=== PATIENT | female | born 1990 | race Two or more races ===

== ENCOUNTER 2025-01-17 14:57 | Emergency (ER) | payer MEDICAID, SELFPAY ==
[2025-01-17 15:53] VITALS: BP 131/92; PULSE 80; RESP 18; TEMP 37; O2SAT 98
--- NOTE | 2025-01-17 18:32 | XR_ITS ---
Examination: Complete OB ultrasound, less than 14 weeks, transabdominal Date and time of exam: January 17, 2025 1908 hrs. Indications: Vaginal bleeding beginning today Technique: Obstetrical ultrasound images less than 14 weeks performed via transabdominal imaging Findings: Uterus 10.1 cm CRL 1.3 cm corresponds to 7 weeks 4 day gestational age No cardiac motion Right ovary obscured by bowel gas Left ovary 3.9 cm arterial flow 25 mm cyst Impression: Intrauterine gestation corresponding to 7 weeks 4 days gestational age However, no cardiac motion, recommend short-term follow-up transvaginal pelvic sonography to exclude demise
--- NOTE | 2025-01-17 22:14 | PD.EDRME ---
Rapid Medical Screening Exam RME Arrival date/time: 01/17/25 14:57 Chief Complaint: OB/Uterine Contractions Time Seen by Provider: 01/17/25 15:55 Vital signs: Vital Signs Temperature 98.6 F 01/17/25 15:53 Pulse Rate 80 01/17/25 15:53 Respiratory Rate 18 01/17/25 15:53 Blood Pressure 131/92 H 01/17/25 15:53 Pulse Oximetry (%) 98 01/17/25 15:53 Oxygen Delivery Method Room Air 01/17/25 15:53 Vital signs reviewed by provider: Yes RME Narrative: 34 YO female presents to the ED with a complaint of spotting and cramping. She states she is 11 weeks and is had an ultrasound in her OB office which showed an intrauterine . The spotting is described as light pink fluid with wiping after urination. She has had no spotting in her underwear. Denies any fever or chills, nausea or vomiting, urinary frequency or burning with urination.
[2025-01-17 22:21] LABS: Collection Type, Urine Clean Catch
[2025-01-17 22:28] LABS: Bilirubin,Urine Negative (Negative); Blood,Urine Negative (Negative); Clarity,Urine Clear (Clear/Hazy); Color,Urine Yellow (Lt Yel-Yel); Glucose, Urine Negative (Negative); Ketones,Urine Negative (Negative); Leukocyte Esterase,Urine Negative (Negative); Nitrite,Urine Negative (Negative); Protein,Urine Negative (Neg - Trace); RBC,Urine 4 /hpf (0-3); Specific Gravity,Urine 1.024 (1.001-1.035); Squamous Epithelial Cell,Urine 5 /hpf (0-5); Urobilinogen,Urine Negative mg/dL (0.0-1.0); WBC,Urine < 1 /hpf (0-5)
--- NOTE | 2025-03-29 13:17 | PD.EDADULT ---
ED General RME/HPI General Chief complaint: OB/Uterine Contractions Stated complaint: PREG 11 WKS; SPOTTING & CRAMPING, STARTED TODAY Time Seen by Provider: 01/17/25 15:55 Arrival date/time: 01/17/25 14:57 RME / HPI RME / HPI narrative: 34 YO female presents to the ED with a complaint of spotting and cramping. She states she is 11 weeks and is had an ultrasound in her OB office which showed an intrauterine . The spotting is described as light pink fluid with wiping after urination. She has had no spotting in her underwear. Denies any fever or chills, nausea or vomiting, urinary frequency or burning with urination. Related Data Home Medications ?Medication ?Instructions ?Recorded ?Confirmed amlodipine 5 mg tablet 5 mg PO QDAY 03/07/23 03/07/23 ergocalciferol (vitamin D2) 1,250 1,250 mcg PO QWEEK 03/07/23 03/07/23 mcg (50,000 unit) capsule (Vitamin D2) lisinopril 40 mg tablet 40 mg PO QDAY 03/07/23 03/07/23 metoprolol tartrate 25 mg tablet 25 mg PO BID 03/07/23 03/07/23 semaglutide 1 mg/dose (4 mg/3 mL) 1 mg subcut QWEEK 03/07/23 03/07/23 subcutaneous pen injector (Ozempic) Previous Rx's ?Medication ?Instructions ?Recorded hydrocodone 10 mg-acetaminophen 1 tab PO Q6H PRN pain #28 tabs 03/10/23 325 mg tablet lidocaine 5 % topical ointment 1 applicatio topical TID PRN 03/10/23 Hemorrhoid surgery 30 days #50 grams ibuprofen 800 mg tablet 800 mg PO TID PRN pain #30 tabs 10/29/23 Allergies Allergy/AdvReac Type Severity Reaction Status Date / Time No Known Allergies Allergy Verified 01/17/25 14:59 Review of Systems Review of Systems Systems Reviewed: All systems reviewed, normal except as documented Past Medical History Past Medical History NEUROLOGIC: Negative Neurological Disorders or Seizures CARDIAC: Positive Cardiac Disorders, Hypercholesterolemia and Hypertension; Negative Congestive Heart Failure, Edema, Cellulitis or Varicose Veins RESPIRATORY: Negative Chronic Obstructive Pulmonary Disease (COPD), Pulmonary Embolism or Sleep Apnea GASTROINTESTINAL: Negative Gastrointestinal Disorders or Hepatitis GENITOURINARY: Negative Genitourinary Disorders or Renal Disease REPRODUCTIVE: Negative Previous Pregnancies MUSCULOSKELETAL: Positive Musculoskeletal Disorders ENDOCRINE: Negative Endocrine Disorders, Diabetes Mellitus Type 1 or Diabetes Mellitus Type 2 HEMATOLOGIC: Negative Blood Disorders OTHER HISTORY: Negative Hospitalization, Autoimmune Disease, Shingles, Falls, Blood Transfusions, Blood Transfusion Reaction, Anesthesia Reactions, Chemotherapy, Radiation Therapy, MRSA, Chicken Pox, Measles, Mumps or Cancer Family History FAMILY HISTORY: Positive Family Cardiac Disorders and Family Surgery; Negative Family Psychiatric Problems, Family Respiratory Disorders, Family Gastrointestinal Problems, Family Cancer or Family Anesthesia Reaction Surgical History SURGICAL: Negative Pacemaker Social History SMOKING STATUS: Never smoker ED Exam Narrative Physical exam: Alert and oriented 34-year-old female, no acute distress. Lungs are clear, regular rate and rhythm. Course Orders Category Date Time Status US OB <= 14 weeks fetus Stat Exams 01/17/25 18:32 Completed Beta HCG,Quantitative Stat Lab 01/17/25 18:49 Completed Urinalysis Stat Lab 01/17/25 22:16 Completed Urine Culture Stat Lab 01/17/25 22:16 Completed Vital Signs Vital signs: Vital Signs Temperature 98.6 F 01/17/25 15:53 Pulse Rate 80 01/17/25 15:53 Respiratory Rate 18 01/17/25 15:53 Blood Pressure 131/92 H 01/17/25 15:53 Pulse Oximetry (%) 98 01/17/25 15:53 Oxygen Delivery Method Room Air 01/17/25 15:53 Discharge Plan Plan Patient Disposition: HOME (Self Care) Prescriptions/Referrals Prescriptions/Med Rec: No Action amlodipine 5 mg Tablet 5 mg PO QDAY ergocalciferol (vitamin D2) [Vitamin D2] 1,250 mcg (50,000 unit) Capsule 1,250 mcg PO QWEEK lisinopril 40 mg Tablet 40 mg PO QDAY metoprolol tartrate 25 mg Tablet 25 mg PO BID Ozempic 1 mg/dose (4 mg/3 mL) pen injector 1 mg SUBCUT QWEEK Patient Comments: INJECT 1 MG SUBCUTANEOUSLY ONCE A WEEK hydrocodone-acetaminophen 10-325 mg tablet 1 tab PO Q6H MDD 4 PRN (Reason: pain) Qty: 28 0RF lidocaine 5 % ointment 1 applicatio TOPICAL TID PRN (Reason: Hemorrhoid surgery) 30 Days Qty: 50 3RF ibuprofen 800 mg tablet 800 mg PO TID PRN (Reason: pain) Qty: 30 0RF Referrals: Mekhi Galarza MD [Primary Care Provider] - In 1 week Problem List Clinical Impression: Threatened miscarriage in early Patient/Caregiver Discharge Instructions Other Activity Instructions:: Follow-up with your OB on Friday for a repeat beta-hCG and transvaginal ultrasound, as discussed. Education Materials: ED Possible Miscarriage ... Additional Instructions: Follow-up with your primary care physician in 24 to 48 hours. Return to the ED for any new or worsening symptoms. Print Language: Togolese Stand Alone Forms: [employer] Award Info., Patient Portal Info Letter PA/VMWARE ENGINEER Supervising Physician PA/VMWARE ENGINEER Supervising Physician: Dr. Maguire [facility] Imaging Radiology reports / interpretation(s): OB US <14wks: Impression: Intrauterine gestation corresponding to 7 weeks 4 days gestational age However, no cardiac motion, recommend short-term follow-up transvaginal pelvic sonography to exclude demise
== END 2025-01-17 22:45 | disposition home or self-care (01) ==
PROVIDERS: Physician Assistant; Emergency Provider Family Medicine; PCP Obstetrics & Gynecology
DX: O20.0 Threatened abortion (principal); Z3A.01 Less than 8 weeks gestation of pregnancy
CPT/HCPCS: 36415; 76801; 81001; 84702; 87086; 99284

== ENCOUNTER 2025-01-28 22:42 | Emergency (ER) | payer MEDICAID, SELFPAY ==
[2025-01-28 22:48] VITALS: BP 111/77; PULSE 90; RESP 15; TEMP 36.6; O2SAT 95; BMI 30.1
[2025-01-28 23:51] VITALS: BP 101/68; PULSE 89; RESP 16; TEMP 36.8; O2SAT 98
[2025-01-29 00:41] VITALS: BP 120/92; PULSE 84; RESP 14; TEMP 37.2; O2SAT 100
[2025-01-29] MEDS: SODIUM CHLORIDE 0.9% 1000 ML 1,000 ML 999 ML IV (00:50)
[2025-01-29] MEDS: MORPHINE SULF INJ 10 MG/ML VIAL 5 MG IVP (00:51)
[2025-01-29 01:12] LABS: Basophils # (Auto) 0.1 Thou/mm3 (0.0-0.2); Basophils % (Auto) 0 % (0-2.5); Eosinophils % (Auto) 0 % (0-10); Hematocrit 32.8 % (36.0-46.0); Hemoglobin 11.7 g/dL (12.0-16.0); Immature Granulocytes % (Auto) 1 % (0-0); Immature Granulocytes Auto 0.09 Thou/mm3 (0.00-0.00); Lymphocytes # (Auto) 1.3 Thou/mm3 (1.0-4.8); Lymphocytes % (Auto) 8 % (10-50); Mean Corpuscular HGB Conc 35.7 g/dl (31.0-37.0); Mean Corpuscular Hemoglobin 31.9 pg (25.0-35.0); Mean Corpuscular Volume 89 fL (80-100); Monocytes # (Auto) 0.7 Thou/mm3 (0.0-0.8); Monocytes % (Auto) 4 % (0-12); Neutrophils # (Auto) 14.4 Thou/mm3 (1.8-7.7); Neutrophils % (Auto) 87 % (37-80); Nucleated Red Blood Cell % 0 /100 WBC (0); Platelet Count 253 Thou/mm3 (140-440); RDW Standard Deviation 40.6 fL (36.4-46.3); Red Blood Count 3.67 Miln/mm3 (4.00-5.20); White Blood Count 16.5 Thou/mm3 (3.6-11.0)
[2025-01-29 01:31] LABS: Alanine Aminotransferase 12 U/L (10-49); Albumin/Globulin Ratio 1.7 (1.2-2.2); Alkaline Phosphatase 63 U/L (46-116); Anion Gap 8 (7-16); Aspartate Amino Transferase 19 U/L (0-34); BUN/Creatinine Ratio 30 Ratio (12-20); Bilirubin,Total 0.3 mg/dL (0.3-1.2); Blood Urea Nitrogen 18 mg/dL (9-23); Calcium 8.6 mg/dL (8.3-10.6); Calcium (Corrected) 8.6 mg/dL (8.5-10.1); Carbon Dioxide 25.7 mMol/L (20.0-31.0); Chloride 104 mMol/L (98-107); Creatinine (Component) 0.6 mg/dL (0.6-1.3); Estimated Creatinine Clearance 127.5 mL/min (>60); Globulin 2.4 gm/dL (2.3-3.5); Glucose 129 mg/dL (74-106); Osmolality,Calculated 279 (275-295); Potassium 4.5 mMol/L (3.4-5.1); Sodium 138 mMol/L (136-145); Total Protein 6.4 gm/dL (5.7-8.2); eGFR > 60 See Note
[2025-01-29 02:14] VITALS: BP 110/92; PULSE 89; RESP 16; TEMP 37.2; O2SAT 100
--- NOTE | 2025-01-29 05:18 | EDNOTE_ITS ---
<Statement entered by Dannielle Lewis MD - 01/30/25 04:33> As co-signing physician, I was present and available for consult prn. I concur with the plan and care as documented by the midlevel provider. ED OB Contraction Preg RMI/HPI General Chief complaint: Vaginal Bleeding Stated complaint: VAG BLEEDING, WEAKNESS, SYNCOPAL EPISODE Time Seen by Provider: 01/29/25 00:28 Arrival date/time: 01/28/25 22:42 34F with no significant PMH presents to ED with active miscarriage as patient pa ssed POC. Patient had US 2 days ago which showed IUP but no FHR. Paitent also had syncopal episode from pain but caught her before she fell. Limitations: no limitations Related Data Home Medications ?Medication ?Instructions ?Recorded ?Confirmed amlodipine 5 mg tablet 5 mg PO QDAY 03/07/23 ergocalciferol (vitamin D2) 1,250 1,250 mcg PO QWEEK 0 03/07/23 03/07/23 mcg (50,000 unit) capsule (Vitamin D2) lisinopril 40 mg tablet 40 mg PO QDAY 03/07/2303/07 metoprolol tartrate 25 mg tablet 25 mg PO BID 03/07/23 03/07/23 semaglutide 1 mg/dose (4 mg/3 mL) 1 mg subcut QWEEK 03/07/23 subcutaneous pen injector (Ozempic) Previous Rx's ?Medication ?Instructions ?Recorded hydrocodone 10 mg-acetaminophen 1 tab PO Q6H PRN pain #28 tabs 03/10/23 325 mg tablet lidocaine 5 % topical ointment 1 applicatio topical TI D PRN 03/10/23 Hemorrhoid surgery 30 days #50 grams ibuprofen 800 mg tablet 800 mg PO TID PRN pain #30 t abs 10/29/23 Allergies Allergy/AdvReac Type Severity Reaction Status Date / Time No Known Allergies Allergy Verified 01/17/25 14:59 Review of Systems Review of Systems Systems Reviewed: All systems reviewed, normal except as documented Constitutional Constitutional: Reports system reviewed and no additional complaints, except as documented, Denies fever(s) and Denies headache(s) ENT Ears, Nose, Mouth, and Throat: Denies disequilibrium and Denies headache(s) Cardiovascular Cardiovascular: Reports system reviewed and no additional complaints, except as documented, Denies chest pain, Denies dyspnea and Reports syncope Respiratory Respiratory: Reports system reviewed and no additional complaints, except as documented, Denies cough and Denies dyspnea Gastrointestinal Gastrointestinal: Reports system reviewed and no additional complaints, except as documented, Denies abdominal pain, Denies nausea and Denies vomiting Genitourinary Genitourinary: Reports abnormal vaginal bleeding and Reports pelvic pain Neurologic Neurologic: Reports system reviewed and no additional complaints, except as documented, Denies confusion, Denies disequilibrium, Denies headache(s) and Reports syncope Psychiatric Psychiatric: Denies confusion Past Medical History Past Medical History NEUROLOGIC: Negative Neurological Disorders or Seizures CARDIAC: Positive Cardiac Disorders, Hypercholesterolemia and Hypertension; Negative Congestive Heart Failure, Edema, Cellulitis or Varicose Veins RESPIRATORY: Negative Chronic Obstructive Pulmonary Disease (COPD), Pulmonary Embolism or Sleep Apnea GASTROINTESTINAL: Negative Gastrointestinal Disorders or Hepatitis GENITOURINARY: Negative Genitourinary Disorders or Renal Disease REPRODUCTIVE: Negative Previous Pregnancies MUSCULOSKELETAL: Positive Musculoskeletal Disorders ENDOCRINE: Negative Endocrine Disorders, Diabetes Mellitus Type 1 or Diabetes Mellitus Type 2 HEMATOLOGIC: Negative Blood Disorders OTHER HISTORY: Negative Hospitalization, Autoimmune Disease, Shingles, Falls, Blood Transfusions, Blood Transfusion Reaction, Anesthesia Reactions, Chemotherapy, Radiation Therapy, MRSA, Chicken Pox, Measles, Mumps or Cancer Family History FAMILY HISTORY: Positive Family Cardiac Disorders and Family Surgery; Negative Family Psychiatric Problems, Family Respiratory Disorders, Family Gastrointestinal Problems, Family Cancer or Family Anesthesia Reaction Surgical History SURGICAL: Negative Pacemaker Social History SMOKING STATUS: Never smoker ED Exam General Limitations: Present no limitations General appearance: Present alert and in no apparent distress Head Head exam: Present atraumatic Eye Eye exam: Present normal appearance, PERRL and EOMI ENT ENT exam: Present normal exam, normal oropharynx and mucous membranes moist Neck Neck exam: Present normal inspection, full ROM and trachea midline Chest Chest inspection: Present normal inspection and symmetric chest wall rise Respiratory Respiratory exam: Present normal lung sounds bilaterally Cardiovascular Cardiovascular exam: Present regular rate, normal rhythm and normal heart sounds Abdominal Exam Abdominal exam: Present soft and normal bowel sounds Extremities Exam Extremities exam: Present normal inspection and full ROM Back Exam Back exam: Present normal inspection and full ROM Neurological Exam Neurological exam: Present alert, oriented X3 and CN II-XII intact Psychiatric Psychiatric exam: Present normal affect and normal mood Skin Skin exam: Present warm, dry, intact and normal color Course Quality Measures none Orders Category Date Time Status Insert IV NOW Care 01/29/25 00:28 Completed CBC Stat Lab 01/29/25 00:44 Completed CMP [Comprehensive Metabolic Panel] Stat Lab 01/29/25 00:44 Completed Type and Screen Stat Lab 01/29/25 00:44 Completed Morphine Inj Med 01/29/25 00:28 Discontinued 5 mg IVP X1 ONE Sodium Chloride 0.9% 1000 ml [Ns] 1,000 ml Med 01/29/25 00:28 Discontinued IV 999 mls/hr Vital Signs Vital signs: Vital Signs Temperature 97.9 F 01/28/25 22:48 Pulse Rate 90 01/28/25 22:48 Respiratory Rate 15 01/28/25 22:48 Blood Pressure 111/77 01/28/25 22:48 Pulse Oximetry (%) 95 01/28/25 22:48 Oxygen Delivery Method Room Air 01/28/25 22:48 O2 at 95% on RA and WNLs Vaginal Bleeding MDM Narrative MDM Narrative: 34F with no significant PMH presents to ED with active miscarriage as patient passed POC. Patient had US 2 days ago which showed IUP but no FHR. Paitent also had syncopal episode from pain but caught her before she fell. Physical exam reveals somewhat pale-looking female. Patient is afebrile, calm, and alert. Moderate leukocytosis and minimal anemia. CMP unremarkable. O+. Meds improved symptoms. Walk challenge passed. Machine Cloth Examiner given. Patient data External records reviewed:: [facility] previous records Clinical information provided by:: patient Social determinants that could affect healthcare access:: none Patient has the following chronic illnesses:: none How is presenting disease/condition affected by chronic disease/condition?: no chronic disease Evaluation data The following diagnostics were reviewed and interpreted by me:: lab results Lab and/or radiology exams considered but not ordered:: ordered Interpretation Summary: above Medications / Prescriptions Medications or Prescriptions considered but not ordered:: ordered Medication administrations:: Medication Administration History Discontinued Medications Sodium Chloride (Ns) 1,000 mls @ 999 mls/hr IV .Q1H1M ONE Stop: 01/29/25 01:28 Last Infusion: 01/29/25 02:00 Dose: Infused Documented By: Admin: 01/29/25 00:50 Dose: 999 mls/hr Documented By: YARITZA Morphine Sulfate (Morphine Sulf Inj 10 Mg/Ml Vial) 5 mg IVP X1 ONE Stop: 01/29/25 00:29 Last Admin: 01/29/25 00:51 Dose: 5 mg Documented By: EE above Consultations Consultation(s) initiated? (list below): No Diagnosis Vaginal Bleeding Differential Diagnosis: missed , threatened , dysfunctional uterine bleeding, menometrorrhagia, incomplete , ectopic without intrauterine and vaginal bleeding Most likely diagnosis given after review of the tests above:: incomplete miscarriage Admission Indicated Admission indicated?: not indicated Admission Request Was there a request for admission?: No Disposition Plan Disposition Plan: Discharge Discharge Attestation Discharge Attestation: The patient and all family members were given an opportunity to ask questions and understood the discharge instructions. Discharge instructions specifically effects, indications for sooner follow up or return to the emergency department, and the expected course of current diagnosis. Patient condition: Stable Discharge Plan Plan Patient Disposition: HOME (Self Care) Discharge Disposition comment: Stable Prescriptions/Referrals Prescriptions/Med Rec: No Action amlodipine 5 mg Tablet 5 mg PO QDAY ergocalciferol (vitamin D2) [Vitamin D2] 1,250 mcg (50,000 unit) Capsule 1,250 mcg PO QWEEK lisinopril 40 mg Tablet 40 mg PO QDAY metoprolol tartrate 25 mg Tablet 25 mg PO BID Ozempic 1 mg/dose (4 mg/3 mL) pen injector 1 mg SUBCUT QWEEK Patient Comments: INJECT 1 MG SUBCUTANEOUSLY ONCE A WEEK hydrocodone-acetaminophen 10-325 mg tablet 1 tab PO Q6H MDD 4 PRN (Reason: pain) Qty: 28 0RF lidocaine 5 % ointment 1 applicatio TOPICAL TID PRN (Reason: Hemorrhoid surgery) 30 Days Qty: 50 3RF ibuprofen 800 mg tablet 800 mg PO TID PRN (Reason: pain) Qty: 30 0RF Problem List Clinical Impression: Incomplete miscarriage Patient/Caregiver Discharge Instructions Education Materials: ED Miscarriage, Incomplete Additional Instructions: Please follow-up with PCP/OBYGN within 24-48 hours and return immediately if symptoms worsen. Print Language: Amharic Stand Alone Forms: Patient Portal Info Letter PA/REMOTE SENSING TECHNICIAN Supervising Physician DWIGHT/COLETTE Supervising Physician: Dr. Lewis
== END 2025-01-29 02:15 | disposition home or self-care (01) ==
PROVIDERS: Physician Assistant; Emergency Provider Emergency Medicine
DX: O03.4 Incomplete spontaneous abortion without complication (principal)
CPT/HCPCS: 36415; 80053; 85025; 86850; 86900; 86901; 96361; 96374; 99284; J2270; J7030

== ENCOUNTER 2025-03-31 09:41 | Outpatient (AMB) | payer MEDICAID, SELFPAY ==
--- NOTE | 2025-03-31 09:41 | AMB.OBINITIA ---
Vital Signs 03/31/25 09:54 Height 1.6 m Height Method Stated Weight 79.549 kg Weight Measurement Method Standing Scale BMI 31.0 BP 118/80 Blood Pressure Source Automatic Cuff Blood Pressure Location Right Upper Arm Position Sitting Respiration 17 Pulse 87 Pulse Source Monitor Temp 97.7 F Temp Source Temporal Artery Scan Pulse Oximetry (%) 98 Oxygen Delivery Method Room Air Allergies/Home Meds Allergies & Medications Allergies No Known Allergies Allergy (Verified 03/31/25 09:56) Intake Visit Data Collection New Patient or Established: Established Patient (seen at [facility] within 3 years) Reason for Visit:: OBI Digester Capper Required: No Do You Feel Safe at Home: Yes Authorities Contacted: N/A PCP or OBGYN visit in last 3 months: Yes Date of Last PCP or OBGYN visit: 01/29/25 Hx Now: Yes Are you currently on any form of Control: No Last menstrual period: 01/28/25 Pain Present Currently: No Pain Scale Used: Vang-Schafer/Numerical Pain scale:: 0 Smoking Status Smoking Status: Never smoker Questionnaires Covid-19 Vaccine Questionnaire Has patient been vacinated for Covid-19 Have you been vacinated for Covid-19: Yes PHQ-9 PHQ-2 Over the last 2 weeks, how often have you been bothered by any of the following problems? 1. Little interest or pleasure in doing things: not at all 2. Feeling down, depressed, or hopeless: not at all Total score: 0 PHQ-9 3. Trouble falling or staying asleep, or sleeping too much: Not at all 4. Feeling tired or having little energy: Not at all 5. Poor appetite or overeating: Not at all 6. Feeling bad about yourself - or that you are a failure or have let yourself or your family down: Not at all 7. Trouble concentrating on things, such as reading the newspaper or watching television: Not at all 8. Moving or speaking so slowly that other people could have noticed? - Or the opposite - being so fidgety or restless that you have been moving around a lot more than usual: not at all 9. Thoughts that you would be better off or of hurting yourself in some way: Not at all Total score: 0 If you checked off any problems, how difficult have these problems made it for you to do your work, take care of things at home, or get along with other people?: not difficult at all Source: Developed by Drs. Bro Martins, Zenobia Parsons, Jose Ludwig and colleagues, with an educational stacia from [employer]. Depression screen completed yes Social History Living Situation History Marital Status: Lives With: Spouse Housing: House Housing Other:: The patient speaks Chilean. Her spouse speaks Tajik. She stays at home. Tobacco History Smoking Status: Never smoker Second Hand Smoke Exposure: No Alcohol History Alcohol Intake: Never Domestic Abuse History Do You Feel Safe at Home: Yes History of Present Illness HPI Narrative The patient is a 34-year-old -0-1-0 unsure LMP who presents for a new OB. She thinks her last menstrual period was sometime at the beginning of January. She had a positive test February 25. She is anxious because she had a miscarriage right before she got with this baby. She was about 7-1/2 weeks along. She did not need a D&C. She has lab work from a clinic in [place]. I have the results. She denies any cramping or bleeding today. She is just anxious she might miscarry again. She is present with her who only speaks Tajik. The patient herself speaks Chilean. She states she was having a hard time getting until about a year ago when she had a gastric sleeve. She then dropped 70 pounds. She states she got and had an ultrasound in December showed a 7-week 4 ounce intrauterine and she miscarried about a week later. She has had her gallbladder removed at the same time as her sleeve because she already had gallstones. She has had a right ovarian cystectomy. She has chronic hypertensive she is on Procardia 30 p.o. daily she was switched from lisinopril with the . She is already taking a baby aspirin. OB Ultrasound Indication Indication: Size and dates OB Ultrasound Ultrasound technique: transvaginal Gestational sac assessment: Presence, location, size, shape: Live intrauterine with a crown-rump length of 0.72 cm corresponding to 6 weeks 4 days and an EDC of 11/20/2025 cardiac activity is noted At was taking 700 a month or how much a week? The mean is 20 charging less than $100 plus his because he is going to have to pay for water. 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 She has been changed to Procardia XL 30 mg p.o. daily The patient lost 70 pounds due to her gastric sleeve. She denies any other chronic medical problems including asthma or diabetes. OB Initial Visit Menstrual History Menstrual reliability: definite Flow: normal Menstrual regularity: regular Monthly: Yes Age at menarche: 11 On control pills at conception: No Date of positive home test: 02/25/25 OB History : 2 Para: 0 Hx # Pregnancies: 0 Hx Total # of Abortions (Spontaneous & Elective): 1 # of Living Children: 0 Infection History & Risk Evaluation History of STDs: none HIV risk evaluation: low risk Hepatitis B risk evaluation: low risk Patient or partner has history of Genital Herpes: No Varicella/chicken pox status: unknown Genetic Screening & History Genetic Screening/Teratology Counseling - Includes patient, baby's father, or anyone in either family with: 1. Patient's age 35 years or older as of estimated date of delivery: Yes 2. Thalassemia (Burundian, Upper Sorbian, Mediterranean, or Background); MCV less than 80: No 3. Neural Tube Defect (Meningomyelocele, Spina Bifida, or Anencephaly): No 4. Congenital Heart Defect: No 5. Down Syndrome: No 6. Yon-Sachs (Ashkenazi Mandaen, Cajun, Japanese [place]): No 7. Dalila Disease (Ashkenazi Mandaen): No 8. Familial Dysautonomia (Ashkenazi Mandaen): No 9. Sickle Cell Disease or Trait (): No 10. Hemophilia or other blood disorders: No 11. Muscular Dystrophy: No 12. Cystic Fibrosis: No 13. Taft's Chorea: No 14. Mental Retardation/Autism: No 15. Other inherited genetic or chromosomal disorder: No 16. Maternal Metabolic Disorder (EG,TYPE 1 Diabetes, PKU): No 17. Patient or baby's father had a child with defects not listed above: No 18. Recurrent loss or a stillbirth: No 19. Medications (including supplements, vitamins, herbs or otc drugs)/illicit/recreational drugs/alcohol since last menstrual period: No 20. Any other: No Infection History 1. Live with someone with TB or exposed to TB: No 2. Rash or viral illness since last menstrual period: No 3. Hepatitis B,C: No Other (see comments) Source: [employer] Exam General Limitations: no limitations General Appearance: alert, in no apparent distress, comfortable, cooperative, healthy appearing and well groomed Neck Neck exam: Present normal inspection, full ROM and trachea midline Chest Chest inspection: Present normal inspection and symmetric chest wall rise Resp Respiratory exam: Present normal lung sounds bilaterally Card Cardiovascular exam: Present regular rate, normal rhythm and normal heart sounds Abdominal Abdominal exam: Present soft, normal bowel sounds and scar (Small scar right lower quadrant from right ovarian cystectomy, small scars gastric sleeve and lap garrett) Extremities Extremities exam: Present normal inspection and full ROM Psych Psychiatric exam: Present normal affect and normal mood Skin Skin exam: Present warm, dry, intact and normal color Results Objective Laboratory: Labs from [facility] reviewed from March 18, 2025 O positive/antibody screen negative /rubella immune/ RPR nonreactive/HIV negative/GC negative/ Chlamydia negative/TSH within normal limits Hemoglobin 13.8. Drug screen negative. All labs reviewed with the patient and her . Cystic fibrosis screening is pending. Pap with GC chlamydia and HPV done on the Pap were normal from March 18, 2025. Office Procedures OB Clinic LOC & Office Proc's Nursing/Assessment Patient Status: Established Patient OB Clinic Nursing Assessment: Medication Reconciliation, Update PMH in EMR and Vital Signs OB Clinic Coordination of Care: Complex Care and Chronic Disease 1-5, Consent,records obtained, informed consent, Education Simp Pt/Fam and Staff clarify orders Special Needs: Heart tones Established Patient Charge Established Patient Point Assignment: 115 Established Patient Point Charge: EP Level 3 (80-115) Assessment & Plan Diagnosis / Problem List (1) : Status: Acute Qualifiers: Weeks of gestation: less than 8 weeks Qualified Code(s): Z3A.01 - Less than 8 weeks gestation of Assessment and Plan: Patient is anxious because of a history of a loss. Will recheck an official ultrasound in 2 weeks. Follow-up in 4 weeks. (2) AMA (advanced maternal age) primigravida 35+: Status: Acute Qualifiers: Trimester: first trimester Qualified Code(s): O09.511 - Supervision of elderly primigravida, first trimester Assessment and Plan: Patient desires NIPT. Will refer to [facility] for level 2 ultrasound. (3) H/O gastric sleeve: Status: Acute Assessment and Plan: Patient to take vitamins and iron. Instructed on healthy eating. (4) Chronic hypertension during , antepartum: Status: Acute Assessment and Plan: On Procardia 30 mg p.o. daily. Refer to maternal- medicine. On baby aspirin 81 mg p.o. daily Additional Plan Follow Up: 4 Weeks
[2025-03-31 09:54] VITALS: BP 118/80; PULSE 87; RESP 17; TEMP 36.5; O2SAT 98; BMI 31.0
== END 2025-03-31 12:13 | disposition home or self-care (01) ==
LOC: HODSOBC 09:41
PROVIDERS: Supervising Provider Obstetrics & Gynecology; Visit Provider Obstetrics & Gynecology
DX: O09.521 Supervision of elderly multigravida, first trimester (principal); O09.891 Supervision of other high risk pregnancies, first trimester; O10.911 Unspecified pre-existing hypertension complicating pregnancy, first trimester; O99.841 Bariatric surgery status complicating pregnancy, first trimester; Z3A.01 Less than 8 weeks gestation of pregnancy; Z79.82 Long term (current) use of aspirin; Z79.899 Other long term (current) drug therapy
CPT/HCPCS: 99213; G0463

== ENCOUNTER 2025-04-03 07:13 | Emergency (ER) | payer MEDICAID, SELFPAY ==
[2025-04-03 07:14] VITALS: BMI 30.9
[2025-04-03 07:22] VITALS: BP 127/90; PULSE 95; RESP 18; TEMP 36.7; O2SAT 98; BMI 30.9
--- NOTE | 2025-04-03 07:39 | PD.EDRME ---
Rapid Medical Screening Exam RME Arrival date/time: 04/03/25 07:13 This is a 34-year-old female that comes in with complaints of nausea vomiting and diarrhea that started yesterday. Patient states she is approximately 7 weeks . Patient is a 2 para 0 patient states she had a miscarriage earlier this year. Patient had some vaginal spotting but does not states she has any at this time. I have greeted and performed a focused initial assessment of this patient. Initial appropriate labs ordered at this time. A comprehensive ED assessment and evaluation of the patient and analysis of all test and completion of medical decision making process will be conducted by additional ED provider. Chief Complaint: Nausea/Vomiting/Diarrhea Time Seen by Provider: 04/03/25 07:22 Vital signs: Vital Signs Temperature 98.1 F 04/03/25 07:22 Pulse Rate 95 04/03/25 07:22 Respiratory Rate 18 04/03/25 07:22 Blood Pressure 127/90 H 04/03/25 07:22 Pulse Oximetry (%) 98 04/03/25 07:22 Oxygen Delivery Method Room Air 04/03/25 07:22
--- NOTE | 2025-04-03 07:41 | XR_ITS ---
Examination: Complete OB ultrasound, less than 14 weeks, transabdominal Date and time of exam: April 03, 2025, 0755 hrs. Indications: Vaginal bleeding and pelvic cramping today. Technique: Obstetrical ultrasound images less than 14 weeks performed via transabdominal imaging Findings: A normal shaped single intrauterine gestation is present in the uterus. pole 0.8 cm corresponds to 6 weeks 5 day gestational age. Cardiac motion 141 BPM Ultrasonographic survey of visible and placental structures unremarkable. Amniotic fluid volume appears appropriate for this estimated gestational age. Right ovary 3.4 cm arterial flow. Left ovary obscured by bowel gas. Impression: Viable intrauterine gestation 6 weeks 5 days.
[2025-04-03] MEDS: ONDANSETRON ODT 4 MG TABRAP PO (08:11)
[2025-04-03 08:51] LABS: Basophils # (Auto) 0.1 Thou/mm3 (0.0-0.2); Basophils % (Auto) 0 % (0-2.5); Eosinophils # (Auto) 0.1 Thou/mm3 (0.0-0.5); Eosinophils % (Auto) 1 % (0-10); Hematocrit 41.6 % (36.0-46.0); Hemoglobin 14.8 g/dL (12.0-16.0); Immature Granulocytes Auto 0.08 Thou/mm3 (0.00-0.00); Lymphocytes # (Auto) 0.5 Thou/mm3 (1.0-4.8); Lymphocytes % (Auto) 4 % (10-50); Mean Corpuscular HGB Conc 35.6 g/dl (31.0-37.0); Mean Corpuscular Hemoglobin 31.6 pg (25.0-35.0); Mean Corpuscular Volume 89 fL (80-100); Monocytes # (Auto) 0.7 Thou/mm3 (0.0-0.8); Monocytes % (Auto) 5 % (0-12); Neutrophils # (Auto) 12.9 Thou/mm3 (1.8-7.7); Neutrophils % (Auto) 90 % (37-80); Nucleated Red Blood Cell # 0.00 Thou/mm3 (0.00-0.00); Nucleated Red Blood Cell % 0 /100 WBC (0); Platelet Count 272 Thou/mm3 (140-440); RDW Standard Deviation 40.8 fL (36.4-46.3); Red Blood Count 4.69 Miln/mm3 (4.00-5.20); White Blood Count 14.3 Thou/mm3 (3.6-11.0)
--- NOTE | 2025-04-03 09:12 | EDNOTE_ITS ---
Nausea/Vomit./Diarrhea-RME/HPI General Chief complaint: Nausea/Vomiting/Diarrhea Stated complaint: DIARRHEA AND VOMITING Time Seen by Provider: 04/03/25 07:22 Arrival date/time: 04/03/25 07:13 Limitations: no limitations RME / HPI RME / HPI Narrative: 04/03/25 07:13 This is a 34-year-old female that comes in with complaints of nausea vomiting and diarrhea that started yesterday. Patient states she is approximately 7 weeks . Patient is a 2 para 0 patient states she had a miscarriage earlier this year. Patient had some vaginal spotting but does not states she has any at this time. I have greeted and performed a focused initial assessment of this patient. Initial appropriate labs ordered at this time. A comprehensive ED assessment and evaluation of the patient and analysis of all test and completion of medical decision making process will be conducted by additional ED provider. DR. QUIROGA MAIN ED EVALUATION: 34 year old female who is ~ 7 weeks gestational age A1 presents to the ED for evaluation of diarrhea beginning last night. Accompanied by vaginal spotting and dysuria. Denies any recent travel or use of antibiotics. No sick contacts with similar symptoms. Denies fevers, chills, chest pain, cough. No reported modifying factors. Related Data Allergies Allergy/AdvReac Type Severity Reaction Status Date / Time No Known Allergies Allergy Verified 04/03/25 07:16 Review of Systems Review of Systems Systems Reviewed: All systems reviewed, normal except as documented Past Medical History Past Medical History CARDIAC: Positive Cardiac Disorders, Hypercholesterolemia and Hypertension MUSCULOSKELETAL: Positive Musculoskeletal Disorders Family History FAMILY HISTORY: Positive Family Cardiac Disorders and Family Surgery Surgical History SURGICAL: Negative Pacemaker Social History SMOKING STATUS: Never smoker SECOND HAND EXPOSURE: No ED Exam General Limitations: Present no limitations General appearance: Present alert and in no apparent distress Head Head exam: Present atraumatic and normocephalic Eye Eye exam: Present normal appearance, PERRL and EOMI ENT ENT exam: Present normal exam, normal oropharynx and mucous membranes moist Neck Neck exam: Present normal inspection, full ROM and trachea midline Chest Chest inspection: Present normal inspection and symmetric chest wall rise Respiratory Respiratory exam: Present normal lung sounds bilaterally Cardiovascular Cardiovascular exam: Present regular rate, normal rhythm and normal heart sounds Abdominal Exam Abdominal exam: Present soft and normal bowel sounds Extremities Exam Extremities exam: Present normal inspection and full ROM Back Exam Back exam: Present normal inspection and full ROM Neurological Exam Neurological exam: Present alert, oriented X3 and CN II-XII intact Psychiatric Psychiatric exam: Present normal affect and normal mood Skin Skin exam: Present warm, dry, intact and normal color Course Quality Measures none Orders Category Date Time Status US OB <= 14 weeks fetus Stat Exams 04/03/25 07:41 Completed ABO/RH Type Stat Lab 04/03/25 08:39 Completed CBC Stat Lab 04/03/25 08:39 Completed Comprehensive Metabolic Panel Stat Lab 04/03/25 08:39 Completed Urinalysis, C/S if Indicated Stat Lab 04/03/25 09:01 Completed Diltiazem Inj [Cardizem Inj] Med 04/03/25 09:45 Discontinued 15 mg IV X1 ONE Ondansetron Odt [Zofran Odt] Med 04/03/25 07:41 Discontinued 4 mg PO X1 ONE Vital Signs Vital signs: Vital Signs Temperature 98.1 F 04/03/25 07:22 Pulse Rate 95 04/03/25 07:22 Respiratory Rate 18 04/03/25 07:22 Blood Pressure 127/90 H 04/03/25 07:22 Pulse Oximetry (%) 98 04/03/25 07:22 Oxygen Delivery Method Room Air 04/03/25 07:22 Pulse ox is 98% on room air which is adequate. Nausea/Vomiting/Diarrhea MDM Narrative MDM Narrative:: Nona Huertas am scribing for and in the presence of Dr. Quiroga. 34 year old female who is currently 7 weeks gestational age, A1 presents to the ED for evaluation of diarrhea beginning last night. Patients CBC show mild leukocystosis at 14.3. CMP and UA are unremarkable with no evidence of significant metabolic abnormalities or urinary tract infection. Patient data External records reviewed:: [facility] previous records (I reviewed ED Visit on 03/29/2025 for threatened miscarriage ) Clinical information provided by:: patient Social determinants that could affect healthcare access:: none Patient has the following chronic illnesses:: Hypertension, hyperlipidemia How is presenting disease/condition affected by chronic disease/condition?: uneffected by Evaluation data The following diagnostics were reviewed and interpreted by me:: lab results and radiology exam(s) Lab and/or radiology exams considered but not ordered:: None Interpretation Summary: Ordering Physician: Kimberley Riley NP Date of Service: 04/03/25 Procedure(s): US OB <= 14 weeks fetus Accession Number(s): [id number] cc: Constantin Keys MD; Jigar Carrero MD; Kimberley Riley NP~ Examination: Complete OB ultrasound, less than 14 weeks, transabdominal Date and time of exam: April 03, 2025, 0755 hrs. Indications: Vaginal bleeding and pelvic cramping today. Technique: Obstetrical ultrasound images less than 14 weeks performed via transabdominal imaging Findings: A normal shaped single intrauterine gestation is present in the uterus. pole 0.8 cm corresponds to 6 weeks 5 day gestational age. Cardiac motion 141 BPM Ultrasonographic survey of visible and placental structures unremarkable. Amniotic fluid volume appears appropriate for this estimated gestational age. Right ovary 3.4 cm arterial flow. Left ovary obscured by bowel gas. Impression: Viable intrauterine gestation 6 weeks 5 days. Dictated By: Constantin Keys MD Signed By: <Electronically signed by Constantin Keys MD in OV> 04/03/25 0918 Medications / Prescriptions Medications / Prescriptions considered but not ordered:: None Medication administrations:: Medication Administration History Discontinued Medications Diltiazem HCl (Diltiazem Inj 5 Mg/Ml Vial 5 Ml) 15 mg IV X1 ONE Stop: 04/03/25 09:46 Last Admin: 04/03/25 09:55 Dose: Not Given Documented By: JOSAFAT Non-Admin Reason: Wrong Patient Ondansetron HCl (Ondansetron Odt 4 Mg Tabrap) 4 mg PO X1 ONE; Protocol Stop: 04/03/25 07:42 Last Admin: 04/03/25 08:11 Dose: 4 mg Documented By: ROSARIO See above Consultations Consultation(s) initiated? (list below): No Diagnosis Nausea Differential Diagnosis: food poisoning, gastroenteritis, drug-induced nausea and vomiting and dehydration Most likely diagnosis given after review of the tests above:: Diarrhea during Admission Indicated Admission indicated?: not indicated Admission Request Was there a request for admission?: No Disposition Plan Disposition Plan: Discharge Discharge Attestation Discharge Attestation: The patient and all family members were given an opportunity to ask questions a nd understood the discharge instructions. Discharge instructions specifically effects, indications for sooner follow up or return to the emergency department, and the expected course of current diagnosis. Patient condition: Stable Discharge Plan Plan Patient Disposition: HOME (Self Care) Patient condition on transfer: Stable Prescriptions/Referrals Referrals: Jigar Tony MD [Primary Care Provider] - In 1 week Problem List Clinical Impression: , Diarrhea during Patient/Caregiver Discharge Instructions Discharge Activity: activity as tolerated Education Materials: First Trimester, ED Vomiting and Diarrhea ... Additional Instructions: Follow-up with your primary care doctor in 3 to 5 days for recheck. You can return to the emergency department sooner if symptoms worsen or if you notice any new, concerning issues. Print Language: Namibian Stand Alone Forms: [employer] Award Info., Patient Portal Info Letter
[2025-04-03 09:15] LABS: Alanine Aminotransferase 45 U/L (10-49); Albumin, Serum 4.2 gm/dL (3.5-5.0); Albumin/Globulin Ratio 1.4 (1.2-2.2); Alkaline Phosphatase 64 U/L (46-116); Anion Gap 9 (7-16); Aspartate Amino Transferase 49 U/L (0-34); BUN/Creatinine Ratio 16 Ratio (12-20); Bilirubin,Total 0.7 mg/dL (0.3-1.2); Blood Urea Nitrogen 11 mg/dL (9-23); Calcium 8.9 mg/dL (8.3-10.6); Calcium (Corrected) 8.9 mg/dL (8.5-10.1); Carbon Dioxide 24.2 mMol/L (20.0-31.0); Chloride 105 mMol/L (98-107); Creatinine (Component) 0.7 mg/dL (0.6-1.3); Estimated Creatinine Clearance 110.8 mL/min (>60); Globulin 2.9 gm/dL (2.3-3.5); Glucose 92 mg/dL (74-106); Osmolality,Calculated 275 (275-295); Potassium 4.8 mMol/L (3.4-5.1); Sodium 138 mMol/L (136-145); Total Protein 7.1 gm/dL (5.7-8.2); eGFR > 60 See Note
[2025-04-03 09:55] LABS: Collection Type, Urine Clean Catch
[2025-04-03 10:11] LABS: Bacteria,Urine Rare; Bilirubin,Urine Negative (Negative); Blood,Urine Negative (Negative); Color,Urine Yellow (Lt Yel-Yel); Culture Indicated,Urine Not Indicated; Glucose, Urine Negative (Negative); Ketones,Urine Negative (Negative); Leukocyte Esterase,Urine Positive (Negative); Nitrite,Urine Negative (Negative); PH,Urine 6.0 (5.0-7.0); Protein,Urine 1+ (Neg - Trace); RBC,Urine 3 /hpf (0-3); Specific Gravity,Urine 1.031 (1.001-1.035); Squamous Epithelial Cell,Urine 14 /hpf (0-5); Urobilinogen,Urine Negative mg/dL (0.0-1.0); WBC,Urine 2 /hpf (0-5)
[2025-04-03 10:36] LABS: Clarity,Urine Hazy (Clear/Hazy)
[2025-04-03 11:13] VITALS: BP 125/75; PULSE 90; RESP 18; TEMP 36.6; O2SAT 99
== END 2025-04-03 11:13 | disposition home or self-care (01) ==
PROVIDERS: Nurse Practitioner Family; Emergency Provider Emergency Medicine; PCP Internal Medicine
DX: O99.891 Other specified diseases and conditions complicating pregnancy (principal); O21.9 Vomiting of pregnancy, unspecified; R19.7 Diarrhea, unspecified; Z3A.01 Less than 8 weeks gestation of pregnancy
CPT/HCPCS: 36415; 76801; 80053; 81001; 84702; 85025; 86900; 86901; 99284; Q0162

== ENCOUNTER 2025-06-08 19:52 | Emergency (ER) | payer MEDICAID, SELFPAY ==
[2025-06-08 19:54] VITALS: BMI 30.1
[2025-06-08 20:25] LABS: Collection Type, Urine Clean Catch
[2025-06-08 20:29] LABS: Bilirubin,Urine Negative (Negative); Blood,Urine Negative (Negative); Clarity,Urine Clear (Clear/Hazy); Color,Urine Colorless (Lt Yel-Yel); Culture Indicated,Urine Not Indicated; Glucose, Urine Negative (Negative); Ketones,Urine Negative (Negative); Leukocyte Esterase,Urine Negative (Negative); Nitrite,Urine Negative (Negative); PH,Urine 6.5 (5.0-7.0); Protein,Urine Negative (Neg - Trace); RBC,Urine 1 /hpf (0-3); Specific Gravity,Urine 1.005 (1.001-1.035); Squamous Epithelial Cell,Urine 1 /hpf (0-5); Urobilinogen,Urine Negative mg/dL (0.0-1.0); WBC,Urine < 1 /hpf (0-5)
[2025-06-08 20:34] VITALS: BP 132/96; PULSE 81; RESP 16; TEMP 36.7; O2SAT 959
[2025-06-08 21:31] VITALS: O2SAT 95
--- NOTE | 2025-06-08 21:32 | XR_ITS ---
Examination: Complete OB ultrasound greater than 14 weeks Date and time of exam: June 08 nusrat thousand 25 1109 hrs. Indications: Vaginal bleeding and pelvic pain onset today Findings: Viable intrauterine single fetus with single amniotic sac presentation breech Cardiac motion 140 BPM Placenta posterior grade 1 Umbilical cord insertion seen. Amniotic fluid index 6.2 cm. spine anterior. Cervix 5.0. CM.. Composite estimated gestational age based on BPD, head circumference, abdominal circumference, femur length is 16 weeks 6 days, estimated weight 172 g Ovaries obscured by bowel gas.. Survey of intracranial anatomy, spinal anatomy, abdominal anatomy, four-chamber heart performed with no abnormalities identified. Impression: Viable intrauterine gestation breech presentation.
--- NOTE | 2025-06-08 21:34 | PD.EDPREG ---
ED OB Contraction Preg RMI/HPI General Chief complaint: OB/Uterine Contractions Stated complaint: 17WKS PREG/LOWER ABD PAIN WITH BURNING @ URIATION Time Seen by Provider: 06/08/25 20:31 Arrival date/time: 06/08/25 19:52 34-year-old female A1 approximately 17 weeks gestation reports with complaints of pelvic pain and scant vaginal bleeding that began this morning. Patient states that it was light pink spotting and has since stopped but the pain persist. She also complains of some mild pressure with urinating but no painful urinating no hematuria no urinary urgency or frequency no fever or chills nausea or vomiting. Patient denies taking any medications for symptoms Limitations: no limitations Related Data Allergies Allergy/AdvReac Type Severity Reaction Status Date / Time No Known Allergies Allergy Verified 04/03/25 07:16 Review of Systems Constitutional Constitutional: Denies chills and Denies fever(s) Cardiovascular Cardiovascular: Denies chest pain and Denies dyspnea Respiratory Respiratory: Denies cough and Denies dyspnea Gastrointestinal Gastrointestinal: Denies nausea and Denies vomiting Genitourinary Genitourinary: Reports abnormal vaginal bleeding, Denies dysuria, Reports pelvic pain and Denies vaginal discharge Musculoskeletal Musculoskeletal: Denies back pain and Denies myalgias Integumentary/Breasts Skin/Breast: Denies skin pain and Denies sores Hematologic/Lymphatic Hematologic/Lymphatic: Denies easy bleeding and Denies easy bruising ED Exam General Limitations: Present no limitations General appearance: Present alert and in no apparent distress Chest Chest inspection: Present normal inspection and symmetric chest wall rise Respiratory Respiratory exam: Present normal lung sounds bilaterally Cardiovascular Cardiovascular exam: Present regular rate, normal rhythm and normal heart sounds Abdominal Exam Abdominal exam: Present soft, normal bowel sounds and other (obese); Absent distention or tenderness Extremities Exam Extremities exam: Present normal inspection and full ROM Back Exam Back exam: Present normal inspection and full ROM Neurological Exam Neurological exam: Present alert, oriented X3 and CN II-XII intact Psychiatric Psychiatric exam: Present normal affect and normal mood Skin Skin exam: Present warm, dry, intact and normal color Course Course Course Narrative: [facility] [address] [place] [address] [facility] Report Signed Patient: LUIS ALBERTO BRIONES Med. Record#: [id number] Birthdate: 1990 Age/Sex: 34 / F Location: [facility] Attending Dr: Ordering Physician: Galdino Luther PA-C Date of Service: 06/08/25 Procedure(s): US OB >= 14 weeks Fetus Accession Number(s): [id number] cc: Constantin Keys MD; NO PRIMARY/FAMILY,PHYSICIAN; Galdino Luther PA-C~ Examination: Complete OB ultrasound greater than 14 weeks Date and time of exam: June 08 laminae thousand 25 1109 hrs. Indications: Vaginal bleeding and pelvic pain onset today Findings: Viable intrauterine single fetus with single amniotic sac presentation breech Cardiac motion 140 BPM Placenta posterior grade 1 Umbilical cord insertion seen. Amniotic fluid index 6.2 cm. spine anterior. Cervix 5.0. CM.. Composite estimated gestational age based on BPD, head circumference, abdominal circumference, femur length is 16 weeks 6 days, estimated weight 172 g Ovaries obscured by bowel gas.. Survey of intracranial anatomy, spinal anatomy, abdominal anatomy, four-chamber heart performed with no abnormalities identified. Impression: Viable intrauterine gestation breech presentation. 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 Member: [facility] Quality Measures none Orders Category Date Time Status US OB >= 14 weeks Fetus Stat Exams 06/08/25 21:32 Completed Beta HCG,Quantitative Stat Lab 06/08/25 21:51 Completed Chlamydia/GC/TV - PCR Stat Lab 06/08/25 Ordered Urinalysis, C/S if Indicated Stat Lab 06/08/25 20:21 Completed Vital Signs Vital signs: Vital Signs Temperature 98.0 F 06/08/25 20:34 Pulse Rate 81 06/08/25 20:34 Respiratory Rate 16 06/08/25 20:34 Blood Pressure 132/96 H 06/08/25 20:34 Pulse Oximetry (%) 959 H 06/08/25 20:34 Oxygen Delivery Method Room Air 06/08/25 20:34 OB/Uterine Contractions Patient data External records reviewed:: None Clinical information provided by:: patient Social determinants that could affect healthcare access:: none Patient has the following chronic illnesses:: none How is presenting disease/condition affected by chronic disease/condition?: no chronic disease Evaluation data The following diagnostics were reviewed and interpreted by me:: lab results and radiology exam(s) Lab and/or radiology exams considered but not ordered:: none Interpretation Summary: Normal 16 weeks 6-day intrauterine gestation Medications / Prescriptions Medications or Prescriptions considered but not ordered:: none Medication administrations:: none Consultations Consultation(s) initiated? (list below): No Diagnosis OB Contractions Differential Diagnosis: premature labor and other (UTI, threatened ) Most likely diagnosis given after review of the tests above:: symptoms of Admission Indicated Explain why admission is indicated or not indicated:: normal laboratory and imaging exam Admission Request Was there a request for admission?: No Disposition Plan Disposition Plan: Discharge Discharge Attestation Discharge Attestation: The patient and all family members were given an opportunity to ask questions and understood the discharge instructions. Discharge instructions specifically effects, indications for sooner follow up or return to the emergency department, and the expected course of current diagnosis. Patient condition: Stable Discharge Plan Plan Patient Disposition: HOME (Self Care) Prescriptions/Referrals Referrals: Temporary Provider,ED [Physician, Emergency Medicine] - In 1 week Problem List Clinical Impression: -related symptom Patient/Caregiver Discharge Instructions Discharge Activity: activity as tolerated Additional Instructions: Your lab test and ultra sound were normal. 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 Return to emergency department if symptoms should worsen Print Language: Belarusian Stand Alone Forms: [employer] Award Info., Patient Portal Info Letter
[2025-06-08 23:02] LABS: Beta HCG,Quantitative 25351 mIU/mL (<5.0)
[2025-06-09 00:27] VITALS: BP 132/67; PULSE 74; RESP 19; TEMP 36.6; O2SAT 99
== END 2025-06-09 00:28 | disposition home or self-care (01) ==
PROVIDERS: Physician Assistant; Emergency Provider Emergency Medicine
DX: O99.891 Other specified diseases and conditions complicating pregnancy (principal); R10.2 Pelvic and perineal pain; O20.9 Hemorrhage in early pregnancy, unspecified; Z3A.16 16 weeks gestation of pregnancy
CPT/HCPCS: 36415; 76805; 81001; 84702; 87491; 87591; 87661; 99283

== ENCOUNTER 2025-06-15 11:25 | Outpatient (AMB) | payer MEDICAID, SELFPAY ==
[2025-06-15 11:44] VITALS: BP 116/77; PULSE 92; RESP 18; TEMP 36.7; O2SAT 97; BMI 33.1
--- NOTE | 2025-06-15 11:44 | OBCLNT_ITS ---
Vital Signs 06/15/25 11:44 Height 1.6 m Height Method Stated Weight 84.822 kg Weight Measurement Method Standing Scale BMI 33.1 BP 116/77 Blood Pressure Source Automatic Cuff Blood Pressure Location Left Upper Arm Position Sitting Respiration 18 Pulse 92 Pulse Source Monitor Temp 98.1 F Temp Source Oral Pulse Oximetry (%) 97 Oxygen Delivery Method Room Air Allergies/Home Meds Allergies & Medications Allergies No Known Allergies Allergy (Verified 06/15/25 11:45) Medication Reconciliation No Known Home Medications 06/15/25 [History Confirmed 06/15/25] Intake Visit Data Collection New Patient or Established: Established Patient (seen at [facility] within 3 years) Reason for Visit:: CARE Seen by Clinical Staff ONLY (RN/MA): No Doughnut Glazier Required: No Do You Feel Safe at Home: Yes Authorities Contacted: N/A PCP or OBGYN visit in last 3 months: Yes Hx Now: Yes Are you currently on any form of Control: No Pain Present Currently: No Pain Scale Used: Vang-Schafer/Numerical Pain scale:: 0 Smoking Status Smoking Status: Never smoker Questionnaires Covid-19 Vaccine Questionnaire Has patient been vacinated for Covid-19 Have you been vacinated for Covid-19: Yes PHQ-9 PHQ-2 Over the last 2 weeks, how often have you been bothered by any of the following problems? 1. Little interest or pleasure in doing things: not at all 2. Feeling down, depressed, or hopeless: not at all Total score: 0 PHQ-9 3. Trouble falling or staying asleep, or sleeping too much: Not at all 4. Feeling tired or having little energy: Not at all 5. Poor appetite or overeating: Not at all 6. Feeling bad about yourself - or that you are a failure or have let yourself or your family down: Not at all 7. Trouble concentrating on things, such as reading the newspaper or watching television: Not at all 8. Moving or speaking so slowly that other people could have noticed? - Or the opposite - being so fidgety or restless that you have been moving around a lot more than usual: not at all 9. Thoughts that you would be better off or of hurting yourself in some way: Not at all Total score: 0 Source: Developed by Drs. Bro Martins, Zenobia Parsons, Jose Ludwig and colleagues, with an educational stacia from [employer]. Depression screen completed yes Social History Living Situation History Lives With: Spouse Housing: House Housing Other:: The patient speaks Thai. Her spouse speaks Kinyarwanda. She stays at home. 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 She stays home during her . She has had a history of a gastric sleeve and cholecystectomy in the past. She apparently lost 70 pounds. She had a lot of her lab work and Pap done at [facility]. She had her NIPT and labs drawn with Dr. Galarza. Care OB Visit Log OB Flowsheet Initial Weight: Not Recorded Date -?-?-?-?-?-?-?-?-?-?-?-?- EGA Weight BP Alb Glu CTX Pres Fundal ht FHR Mov Dilation Station Effacement Hx Notes Visit Note 06/15/25 -?-?-?-?-?-?-?-?-?-?--?-?- 17w 3d 84.822 kg 116/77 absent 17 absent Patient was seen here once for new OB. She saw Dr. Galarza in between was having a hard time getting an appointment. Authorize for le emanuel 2 ultrasound secondary to AMA and history of gastric sleeve. JOSE Calculator Estimated Delivery Date Method Current WG Current Estimate 11/20/25 Ultrasound #1 17w 3d Other Estimates 11/20/25 LMP (Uncertain) 17w 3d Specific Issue/Plans -0-1-0 Obesity, status post gastric sleeve with weight loss of 70 pounds History of hypertension on lisinopril prior to . AMA: Age 34 normal NIPT 46XX labs drawn 03/18/2025 at [facility] through [facility]: O+/Antibody negative/RPR nonreactive/hepatitis B surface antigen negative/HIV negative/TSH normal/hemoglobin 13.8/drug screen negative/Pap smear normal/gonorrhea negative/chlamydia negative/trichomonas negative/ Office Procedures OB Clinic LOC & Office Proc's Nursing/Assessment Patient Status: Established Patient OB Clinic Nursing Assessment: Medication Reconciliation, Update PMH in EMR and Vital Signs OB Clinic Coordination of Care: Complex Care and Chronic Disease 1-5, Consent,records obtained, informed consent, Education Simp Pt/Fam, 1 Ins Authorization, Lab and Imaging orders, Results/Orders obtained and Staff clarify orders Special Needs: Heart tones Established Patient Charge Established Patient Point Assignment: 150 Established Patient Point Charge: EP Level 4 (120-155) Assessment & Plan Diagnosis / Problem List (1) H/O gastric sleeve: Status: Acute Plan: Status post loss of 70 pounds. Keep an eye on iron and Hgb (2) AMA (advanced maternal age) primigravida 35+: Status: Acute Qualifiers: Trimester: first trimester Qualified Code(s): O09.511 - Supervision of elderly primigravida, first trimester Plan: Normal NIPT. aFP pending. Authorize for level 2 ultrasound (3) : Status: Acute Qualifiers: Weeks of gestation: 17 weeks Qualified Code(s): Z3A.17 - 17 weeks gestation of (4) Chronic hypertension during , antepartum: Status: Acute Plan: Current blood pressure normal. On baby aspirin.
== END 2025-06-15 12:28 | disposition home or self-care (01) ==
LOC: HODSOBC 11:25
PROVIDERS: PCP Internal Medicine; Referring Provider Internal Medicine; Supervising Provider Obstetrics & Gynecology; Visit Provider Obstetrics & Gynecology
DX: O09.522 Supervision of elderly multigravida, second trimester (principal); O09.892 Supervision of other high risk pregnancies, second trimester; O10.912 Unspecified pre-existing hypertension complicating pregnancy, second trimester; O99.842 Bariatric surgery status complicating pregnancy, second trimester; O99.212 Obesity complicating pregnancy, second trimester; Z3A.17 17 weeks gestation of pregnancy; Z90.49 Acquired absence of other specified parts of digestive tract
CPT/HCPCS: 99214; G0463

== ENCOUNTER 2025-07-15 09:46 | Outpatient (AMB) | payer MEDICAID, SELFPAY ==
[2025-07-15 10:45] VITALS: BP 124/84; PULSE 103; RESP 20; TEMP 36.6; O2SAT 98; BMI 34.2
--- NOTE | 2025-07-15 10:45 | OBCLNT_ITS ---
Vital Signs 07/15/25 10:45 Height 1.6 m Height Method Stated Weight 87.6 kg Weight Measurement Method Standing Scale BMI 34.2 BP 124/84 Blood Pressure Source Automatic Cuff Blood Pressure Location Left Upper Arm Position Sitting Respiration 20 Pulse 103 H Pulse Source Monitor Temp 97.8 F Temp Source Oral Pulse Oximetry (%) 98 Oxygen Delivery Method Room Air Allergies/Home Meds Allergies & Medications Allergies No Known Allergies Allergy (Verified 07/15/25 10:45) Medication Reconciliation ferric citrate 210 mg iron tablet 210 mg PO QDAY #90 tabs 06/22/25 [Rx Confirmed 07/15/25] Intake Visit Data Collection New Patient or Established: Established Patient (seen at [facility] within 3 years) Reason for Visit:: CARE Seen by Clinical Staff ONLY (RN/MA): No Chief Station Engineer Required: No Do You Feel Safe at Home: Yes Authorities Contacted: N/A PCP or OBGYN visit in last 3 months: Yes Hx Now: Yes Are you currently on any form of Control: No Pain Present Currently: No Pain Scale Used: Vang-Schafer/Numerical Pain scale:: 0 Smoking Status Smoking Status: Never smoker Questionnaires Covid-19 Vaccine Questionnaire Has patient been vacinated for Covid-19 Have you been vacinated for Covid-19: Yes PHQ-9 PHQ-2 Over the last 2 weeks, how often have you been bothered by any of the following problems? 1. Little interest or pleasure in doing things: not at all 2. Feeling down, depressed, or hopeless: not at all Total score: 0 PHQ-9 3. Trouble falling or staying asleep, or sleeping too much: Not at all 4. Feeling tired or having little energy: Not at all 5. Poor appetite or overeating: Not at all 6. Feeling bad about yourself - or that you are a failure or have let yourself or your family down: Not at all 7. Trouble concentrating on things, such as reading the newspaper or watching television: Not at all 8. Moving or speaking so slowly that other people could have noticed? - Or the opposite - being so fidgety or restless that you have been moving around a lot more than usual: not at all 9. Thoughts that you would be better off or of hurting yourself in some way: Not at all Total score: 0 Source: Developed by Drs. Bro Martins, Zenobia Parsons, Jose Ludwig and colleagues, with an educational stacia from [email or web address]. Depression screen completed yes Social History Living Situation History Lives With: Spouse Housing: House Housing Other:: The patient speaks Georgian. Her spouse speaks Chinese. She stays at home. 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 She saw Dr. Galarza in between was having a hard time getting an appointment. Authorize for le emanuel 2 ultrasound secondary to AMA and history of gastric sleeve. 07/15/25 -?-?-?-?-?-?-?-?-?-?-?-?- 21w 5d 87.6 kg 124/84 absent 24 active Positive flutter no vaginal bleeding no pressure no loss of fluids Has appointment for level 2 ultrasound in approximately 2 weeks. JOSE Calculator Estimated Delivery Date Method Current WG Current Estimate 11/20/25 Ultrasound #1 21w 6d Other Estimates 11/20/25 LMP (Uncertain) 21w 6d Specific Issue/Plans -0-1-0 Obesity, status post gastric sleeve with weight loss of 70 pounds History of hypertension on lisinopril prior to . AMA: Age 34 normal NIPT 46XX labs drawn 03/18/2025 at [facility] through [facility]: O+/Antibody negative/RPR nonreactive/hepatitis B surface antigen negative/HIV negative/TSH normal/hemoglobin 13.8/drug screen negative/Pap smear normal/gonorrhea negative/chlamydia negative/trichomonas negative/ Notes Visit Date: 07/15/25 Last Updated by: Whitney Ramirez (OB Clinic)MD AFP reviewed and normal Office Procedures OBC Clinic LOC & Office Proc's Nursing/Assessment Patient Status: Established Patient OB Clinic Nursing Assessment: Medication Reconciliation, Update PMH in EMR and Vital Signs OB Clinic Coordination of Care: AMA, Complex Care and Chronic Disease 1-5, Consent,records obtained, informed consent, Education Simp Pt/Fam, 1 Ins Authorization, Lab and Imaging orders, Results/Orders obtained and Staff clarify orders Special Needs: Heart tones Established Patient Charge Established Patient Point Assignment: 170 Established Patient Point Charge: EP Level 5 (160-above) Assessment & Plan Diagnosis / Problem List (1) Chronic hypertension during , antepartum: Status: Acute Plan: History of being on lisinopril prior to gastric sleeve.. No meds this . On baby aspirin. (2) H/O gastric sleeve: Status: Acute Plan: Check hemoglobin several times during (3) AMA (advanced maternal age) primigravida 35+: Status: Acute Qualifiers: Trimester: first trimester Qualified Code(s): O09.511 - Supervision of elderly primigravida, first trimester Plan: Normal NIPT normal AFP. Level 2 ultrasound pending (4) : Status: Acute Qualifiers: Weeks of gestation: 21 weeks Qualified Code(s): Z3A.21 - 21 weeks gestation of Additional Plan Follow Up: 4 Weeks
== END 2025-07-15 11:06 | disposition home or self-care (01) ==
LOC: HODSOBC 09:46
PROVIDERS: Supervising Provider Obstetrics & Gynecology; Visit Provider Obstetrics & Gynecology
DX: O09.892 Supervision of other high risk pregnancies, second trimester (principal); O10.912 Unspecified pre-existing hypertension complicating pregnancy, second trimester; O09.522 Supervision of elderly multigravida, second trimester; Z3A.21 21 weeks gestation of pregnancy; Z98.84 Bariatric surgery status
CPT/HCPCS: 99215; G0463

== ENCOUNTER 2025-08-18 09:29 | Outpatient (AMB) | payer MEDICAID, SELFPAY ==
[2025-08-18 09:39] VITALS: BP 117/79; PULSE 94; RESP 18; TEMP 36.6; O2SAT 98; BMI 35.6
--- NOTE | 2025-08-18 09:39 | OBCLNT_ITS ---
Vital Signs 08/18/25 09:39 Height 1.6 m Height Method Stated Weight 91.342 kg Weight Measurement Method Standing Scale BMI 35.6 BP 117/79 Blood Pressure Source Automatic Cuff Blood Pressure Location Right Upper Arm Position Sitting Respiration 18 Pulse 94 Pulse Source Monitor Temp 97.8 F Temp Source Temporal Artery Scan Pulse Oximetry (%) 98 Oxygen Delivery Method Room Air Allergies/Home Meds Allergies & Medications Allergies No Known Allergies Allergy (Verified 08/18/25 09:43) Medication Reconciliation ferric citrate 210 mg iron tablet 210 mg PO QDAY #90 tabs 06/22/25 [Rx Confirmed 08/18/25] Immunizations Immunizations Flu Vaccine in the Last 12 Months: No Flu Vaccine Exclusion Criteria: Refused by Patient Care OB Visit Log OB Flowsheet Initial Weight: Not Recorded Date -?-?-?-?-?-?-?-?-?-?-?-?- EGA Weight BP Alb Glu CTX Pres Fundal ht FHR Mov Dilation Station Effacement Hx Notes Visit Note 06/15/25 -?-?-?-?-?-?-?-?-?-?-?-?- 17w 3d 84.822 kg 116/77 absent 17 absent Patient was seen here once for new OB. She saw Dr. Galarza in between was having a hard time getting an appointment. Authorize for le emanuel 2 ultrasound secondary to AMA and history of gastric sleeve. 07/15/25 -?-?-?-?-?-?-?-?-?-?-?-?- 21w 5d 87.6 kg 124/84 absent 24 active Positive flutter no vaginal bleeding no pressure no loss of fluids Has appointment for level 2 ultrasound in approximately 2 weeks. 08/18/25 -?-?-?-?-?-?-?-?-?-?-?-?- 26w 4d 91.342 kg 117/79 occasional 27 141 active JOSE Calculator Estimated Delivery Date Method Current WG Current Estimate 11/20/25 Ultrasound #1 26w 5d Other Estimates 11/20/25 LMP (Uncertain) 26w 5d Specific Issue/Plans -0-1-0 Obesity, status post gastric sleeve with weight loss of 70 pounds History of hypertension on lisinopril prior to . AMA: Age 34 normal NIPT 46XX labs drawn 03/18/2025 at [facility] through [facility]: O+/Antibody negative/RPR nonreactive/hepatitis B surface antigen negative/HIV negative/TSH normal/hemoglobin 13.8/drug screen negative/Pap smear normal/gonorrhea negative/chlamydia negative/trichomonas negative/ Notes Visit Date: 08/18/25 Last Updated by: Roselyn Sparks MD US done on 08/09/[address] Jose hung/kar appropriate growth and has another one on 09/20/2025 AMA. Obesity / Adrenal cyst on fetus small l1x0.7 cm left side /h/o Bariatric surgery/ h/o chronic hypertension /start NST at 32 weeks however patient states she is not feeling movements well x 1 week and would prefer to go to hospital to get checked out/ she states she is monitoring her BP at home and also her sugars / she is given CBC, RPR and one hour GTT / she will go to [facility] now for evaluation of the baby and decreased movements Visit Date: 07/15/25 Last Updated by: Whitney Ramirez (OB Clinic)MD AFP reviewed and normal Office Procedures OBC Clinic LOC & Office Proc's Nursing/Assessment Patient Status: Established Patient OB Clinic Nursing Assessment: Medication Reconciliation, Update PMH in EMR and Vital Signs OB Clinic Coordination of Care: Complex Care and Chronic Disease 1-5, Education Complex Pt/Fam, Consent,records obtained, informed consent, Lab and Imaging orders, Results/Orders obtained and Staff clarify orders Special Needs: Heart tones Established Patient Charge Established Patient Point Assignment: 140 Established Patient Point Charge: EP Level 4 (120-155) Assessment & Plan Diagnosis / Problem List (1) H/O gastric sleeve: Status: Acute (2) AMA (advanced maternal age) primigravida 35+: Status: Acute Qualifiers: Trimester: first trimester Qualified Code(s): O09.511 - Supervision of elderly primigravida, first trimester (3) : Status: Acute Qualifiers: Weeks of gestation: 21 weeks Qualified Code(s): Z3A.21 - 21 weeks gestation of (4) Morbid obesity due to excess calories: Status: Acute Additional Assessment US done on 08/09/[address] Jose hung/kar appropriate growth and has another one on 09/20/2025 AMA. Obesity / Adrenal cyst on fetus small l1x0.7 cm left side /h/o Bariatric surgery/ h/o chronic hypertension /start NST at 32 weeks per MFM Bi weekly however patient states she is not feeling movements well x 1 week and would prefer to go to hospital to get checked out/ she states she is monitoring her BP at home and also her sugars / she is given CBC, RPR and one hour GTT / she will go to [facility] now for evaluation of the baby and decreased movements . In case she is not able to do the 1 hour GTT / will order HbA1c and RBS next visit Additional Plan Follow Up: 2 to 3 weeks
== END 2025-08-18 10:49 | disposition home or self-care (01) ==
PROVIDERS: Supervising Provider Obstetrics & Gynecology; Visit Provider Obstetrics & Gynecology
DX: O09.522 Supervision of elderly multigravida, second trimester (principal); O09.892 Supervision of other high risk pregnancies, second trimester; O99.212 Obesity complicating pregnancy, second trimester; E66.01 Morbid (severe) obesity due to excess calories; O99.842 Bariatric surgery status complicating pregnancy, second trimester; O10.912 Unspecified pre-existing hypertension complicating pregnancy, second trimester; O35.8XX0 Maternal care for other (suspected) fetal abnormality and damage, not applicable or unspecified; Z3A.26 26 weeks gestation of pregnancy; Z28.21 Immunization not carried out because of patient refusal
CPT/HCPCS: 99214; G0463

== ENCOUNTER 2025-08-18 10:32 | Observation (INO) | payer MEDICAID, SELFPAY ==
[2025-08-18] VITALS (7 sets, daily range): BP systolic 121; BP diastolic 93; PULSE 82–100; RESP 17–100; TEMP 36.7; O2SAT 96–97; BMI 35.6
[2025-08-18 11:30] LABS: Collection Type, Urine Clean Catch
[2025-08-18 11:44] LABS: Bacteria,Urine Rare; Bilirubin,Urine Negative (Negative); Blood,Urine Negative (Negative); Clarity,Urine Clear (Clear/Hazy); Color,Urine Lt-Yellow (Lt Yel-Yel); Glucose, Urine Negative (Negative); Ketones,Urine Negative (Negative); Leukocyte Esterase,Urine Negative (Negative); Nitrite,Urine Negative (Negative); PH,Urine 6.5 (5.0-7.0); Protein,Urine Negative (Neg - Trace); RBC,Urine 2 /hpf (0-3); Specific Gravity,Urine 1.006 (1.001-1.035); Squamous Epithelial Cell,Urine 7 /hpf (0-5); Urobilinogen,Urine Negative mg/dL (0.0-1.0); WBC,Urine 1 /hpf (0-5)
[2025-08-18 12:14] LABS: FFN Specimen Descripton Clr Colrless Aqueous; Fetal Fibronectin Negative (Negative)
== END 2025-08-18 12:22 | disposition home or self-care (01) ==
PROVIDERS: Admitting Provider Obstetrics & Gynecology; Visit Provider Obstetrics & Gynecology
DX: O36.8120 Decreased fetal movements, second trimester, not applicable or unspecified (principal); Z3A.26 26 weeks gestation of pregnancy; O26.892 Other specified pregnancy related conditions, second trimester; R10.20 Pelvic and perineal pain unspecified side
CPT/HCPCS: 59025; 59899; 81001; 82731

== ENCOUNTER 2025-09-01 16:58 | Observation (INO) | payer MEDICAID, SELFPAY ==
[2025-09-01] VITALS (16 sets, daily range): BP systolic 129; BP diastolic 81; PULSE 83–95; RESP 20–100; TEMP 37; O2SAT 97–100; BMI 35.9
--- NOTE | 2025-09-01 17:40 | XR_ITS ---
Examination: Biophysical profile, ultrasound Date and time of exam: September 01, 2025, 1749 hours INDICATIONS: Decreased movement today Technique: Multiple transabdominal sonographic images of the pelvis abdomen obtained. Attention is directed to the breathing movement, gross body movement, amniotic fluid volume and tone. Findings: Amniotic fluid index 10.5 cm Total biophysical profile is 8 of 8. breathing movement is 2. Gross body movement is 2. tone is 2. Qualitative amniotic fluid volume is 2 Impression: Biophysical profile is 8 of 8.
--- NOTE | 2025-09-01 18:33 | PD.LDPN ---
Documentation for date of: 09/01/25 OB Labor Progress Note Assessment and Plan Comments: Triage Note Karon is a 34yo with SIUP at 28&4wk presenting to L&D for lack of movement since last night. She notes no ctx, no lof, no vaginal bleeding. PMhx/PNC significant for: -Obesity s/p gastric sleeve with weight loss of 70 pounds -History of hypertension on lisinopril prior to -AMA: Age 34 normal NIPT 46XX - adrenal cyst -PNC with Dr. Sparks ROS negative other than what was described above. Vitals wnl, afebrile General: well developed, well nourished, no acute distress, conversant Cardiac: normal heart rate Lungs: breathing without distress Abdomen: soft, gravid, non-tender, no rebound or guarding Extremities: no edema BLE NST: reassuring for gestational age with 10x10 accels, no decels, mod ginette Radiology: Examination: Biophysical profile, ultrasound Date and time of exam: September 01, 2025, 1749 hours INDICATIONS: Decreased movement today Technique: Multiple transabdominal sonographic images of the pelvis abdomen obtained. Attention is directed to the breathing movement, gross body movement, amniotic fluid volume and tone. Findings: Amniotic fluid index 10.5 cm Total biophysical profile is 8 of 8. breathing movement is 2. Gross body movement is 2. tone is 2. Qualitative amniotic fluid volume is 2 Impression: Biophysical profile is 8 of 8. Assessment: Karon is a 34yo with SIUP at 28&4wk with decreased movement. Vitals wnl, benign exam. Reassuring status based on NST and BPP. Plan: -Provided reassurance regarding findings -Continue routine follow up with OBGYN -Discussed return precautions at length including FKCs Dr. Jackson
== END 2025-09-01 19:05 | disposition home or self-care (01) ==
PROVIDERS: Admitting Provider Obstetrics & Gynecology; Visit Provider Obstetrics & Gynecology
DX: O36.8130 Decreased fetal movements, third trimester, not applicable or unspecified (principal); Z3A.28 28 weeks gestation of pregnancy
CPT/HCPCS: 59025; 59899; 76819

== ENCOUNTER 2025-09-05 13:00 | Outpatient (AMB) | payer MEDICAID, SELFPAY ==
[2025-09-05 13:05] VITALS: BP 117/81; PULSE 102; RESP 20; TEMP 36.6; O2SAT 97; BMI 35.6
--- NOTE | 2025-09-05 13:05 | OBCLNT_ITS ---
Vital Signs 09/05/25 13:05 Height 1.6 m Height Method Stated Weight 91.229 kg Weight Measurement Method Standing Scale BMI 35.6 BP 117/81 Blood Pressure Source Automatic Cuff Blood Pressure Location Left Upper Arm Position Sitting Respiration 20 Pulse 102 H Pulse Source Monitor Temp 97.8 F Temp Source Oral Pulse Oximetry (%) 97 Oxygen Delivery Method Room Air Allergies/Home Meds Allergies & Medications Allergies No Known Allergies Allergy (Verified 09/05/25 13:06) Medication Reconciliation aspirin 81 mg tablet,delayed release 81 mg PO QDAY 09/01/25 [History Confirmed 09/05/25] ferrous sulfate 325 mg (65 mg iron) tablet (FeroSul) 325 mg PO QDAY 09/01/25 [History Confirmed 09/05/25] vit no.95-ferrous fumarate 28 mg-folic acid 800 mcg tablet () 1 tab PO QDAY 09/01/25 [History Confirmed 09/05/25] Immunizations Immunizations Flu Vaccine in the Last 12 Months: Yes Flu Vaccine Exclusion Criteria: Already Received Care OB Visit Log OB Flowsheet Initial Weight: Not Recorded Date -?-?-?-?-?-?-?-?-?-?-?-?- EGA Weight BP Alb Glu CTX Pres Fundal ht FHR Mov Dilation Station Effacement Hx Notes Visit Note 06/15/25 -?-?-?-?-?-?-?-?-?-?-?-?- 17w 3d 84.822 kg 116/77 absent 17 absent Patient was seen here once for new OB. She saw Dr. Galarza in between was having a hard time getting an appointment. Authorize for le emanuel 2 ultrasound secondary to AMA and history of gastric sleeve. 07/15/25 -?-?-?-?-?-?-?-?-?-?-?-?- 21w 5d 87.6 kg 124/84 absent 24 active Positive flutter no vaginal bleeding no pressure no loss of fluids Has appointment for level 2 ultrasound in approximately 2 weeks. 08/18/25 -?-?-?-?-?-?-?-?-?-?-?-?- 26w 4d 91.342 kg 117/79 occasional 27 141 active 09/05/25 -?-?-?-?-?-?-?-?-?-?-?-?- 29w 1d 91.229 kg 117/81 absent breech 29 130 active patient is very anxious and her bP is normal One hour GTT is normal / explained how to do kick count and follow up in 2 to 3 weeks / after the [facility] appointment weeks JOSE Calculator Estimated Delivery Date Method Current WG Current Estimate 11/20/25 Ultrasound #1 30w 4d Other Estimates 11/20/25 LMP (Uncertain) 30w 4d Specific Issue/Plans -0-1-0 Obesity, status post gastric sleeve with weight loss of 70 pounds History of hypertension on lisinopril prior to . AMA: Age 34 normal NIPT 46XX labs drawn 03/18/2025 at [facility] through [facility]: O+/Antibody negative/RPR nonreactive/hepatitis B surface antigen negative/HIV negative/TSH normal/hemoglobin 13.8/drug screen negative/Pap smear normal/gonorrhea negative/chlamydia negative/trichomonas negative/ Notes Visit Date: 09/05/25 Last Updated by: Roselyn Sparks MD US done on 08/09/[address] Jose hung/kar appropriate growth and has another one on 09/20/2025 AMA. Obesity / Adrenal cyst on fetus small l1x0.7 cm left side /h/o Bariatric surgery/ h/o chronic hypertension /start NST at 32 weeks she states she is monitoring her BP at home and also her sugars / she was given CBC, RPR and one hour GTT /labs done 08/19/2025 One hour Glucose is 130/ Hb is 11.9/ RPR is NR Visit Date: 07/15/25 Last Updated by: Whitney Ramirez (OB Clinic)MD AFP revi Visit Date: 08/18/25 Last Updated by: Roselyn Sparks MD US done on 08/09/[address] Jose ghosh appropriate growth and has another one on 09/20/2025 AMA. Obesity / Adrenal cyst on fetus small l1x0.7 cm left side /h/o Bariatric surgery/ h/o chronic hypertension /start NST at 32 weeks however patient states she is not feeling movements well x 1 week and would prefer to go to hospital to get checked out/ she states she is monitoring her BP at home and also her sugars / she is given CBC, RPR and one hour GTT / she will go to [facility] now for evaluation of the baby and decreased movements Visit Date: 07/15/25 Last Updated by: Whitney Ramirez (OB Clinic)MD AFP reviewed and normal Office Procedures OBC Clinic LOC & Office Proc's Nursing/Assessment Patient Status: Established Patient OB Clinic Nursing Assessment: Medication Reconciliation, Update PMH in EMR and Vital Signs OB Clinic Coordination of Care: AMA, Complex Care and Chronic Disease 1-5, Consent,records obtained, informed consent, Education Simp Pt/Fam, 1 Ins Authorization, Lab and Imaging orders, Results/Orders obtained and Staff clarify orders Special Needs: Heart tones Established Patient Charge Established Patient Point Assignment: 170 Established Patient Point Charge: EP Level 5 (160-above) Assessment & Plan Diagnosis / Problem List (1) Chronic hypertension during , antepartum: Status: Acute (2) H/O gastric sleeve: Status: Acute (3) AMA (advanced maternal age) primigravida 35+: Status: Acute Qualifiers: Trimester: first trimester Qualified Code(s): O09.511 - Supervision of elderly primigravida, first trimester (4) : Status: Acute Qualifiers: Weeks of gestation: 21 weeks Qualified Code(s): Z3A.21 - 21 weeks gestation of (5) Anxiety: Status: Acute Additional Plan 34 years old / at 29.1 weeks IUP / anxiety due to previous miscarriage and AMA at 29.1 weeks explained kick count and has a follow up with MFM in 2 weeks / follow up here after that in 3 weeks / BP is normal and one hour GTT is normal
== END 2025-09-05 14:21 | disposition home or self-care (01) ==
LOC: HODSOBC 13:00
PROVIDERS: Supervising Provider Obstetrics & Gynecology; Visit Provider Obstetrics & Gynecology
DX: O09.893 Supervision of other high risk pregnancies, third trimester (principal); O10.913 Unspecified pre-existing hypertension complicating pregnancy, third trimester; O99.343 Other mental disorders complicating pregnancy, third trimester; F41.9 Anxiety disorder, unspecified; O99.843 Bariatric surgery status complicating pregnancy, third trimester; O99.213 Obesity complicating pregnancy, third trimester; O09.523 Supervision of elderly multigravida, third trimester; O09.293 Supervision of pregnancy with other poor reproductive or obstetric history, third trimester; Z3A.29 29 weeks gestation of pregnancy; Z79.899 Other long term (current) drug therapy
CPT/HCPCS: 99215; G0463

== ENCOUNTER 2025-09-27 13:07 | Outpatient (AMB) | payer MEDICAID, SELFPAY ==
--- NOTE | 2025-09-27 13:52 | AMB.OBPNC ---
Vital Signs 09/27/25 13:59 Height 1.6 m Height Method Stated Weight 93.553 kg Weight Measurement Method Standing Scale BMI 36.5 BP 109/77 Blood Pressure Source Automatic Cuff Blood Pressure Location Left Upper Arm Position Sitting Respiration 18 Pulse 92 Pulse Source Monitor Temp 97.9 F Temp Source Oral Pulse Oximetry (%) 96 Oxygen Delivery Method Room Air Allergies/Home Meds Allergies & Medications Allergies No Known Allergies Allergy (Verified 09/27/25 14:01) Medication Reconciliation aspirin 81 mg tablet,delayed release 81 mg PO QDAY 09/01/25 [History Confirmed 09/27/25] ferrous sulfate 325 mg (65 mg iron) tablet (FeroSul) 325 mg PO QDAY 09/01/25 [History Confirmed 09/27/25] vit no.95-ferrous fumarate 28 mg-folic acid 800 mcg tablet () 1 tab PO QDAY 09/01/25 [History Confirmed 09/27/25] Immunizations Immunizations Flu Vaccine in the Last 12 Months: No Flu Vaccine Exclusion Criteria: Refused by Patient Care OB Visit Log OB Flowsheet Initial Weight: Not Recorded Date <del>?</del> EGA Weight BP Alb Glu CTX Pres Fundal ht FHR Mov Dilation Station Effacement Hx Notes Visit Note 06/15/25 <del>?</del> 17w 3d 84.822 kg 116/77 absent 17 absent Patient was seen here once for new OB. She saw Dr. Galarza in between was having a hard time getting an appointment. Authorize for level 2 ultrasound secondary to AMA and history of gastric sleeve. 07/15/25 <del>?</del> 21w 5d 87.6 kg 124/84 absent 24 active Positive flutter no vaginal bleeding no pressure no loss of fluids Has appointment for level 2 ultrasound in approximately 2 weeks. 08/18/25 <del>?</del> 26w 4d 91.342 kg 117/79 occasional 27 141 active 09/05/25 <del>?</del> 29w 1d 91.229 kg 117/81 absent breech 29 130 active patient is very anxious and her bP is normal One hour GTT is normal / explained how to do kick count and follow up in 2 to 3 weeks / after the M appointment weeks 09/27/25 <del>?</del> 32w 2d 93.553 kg 109/77 transverse 32 146 active JOSE Calculator Estimated Delivery Date Method Current WG Current Estimate 11/20/25 Ultrasound #1 33w 1d Other Estimates 11/20/25 LMP (Uncertain) 33w 1d Specific Issue/Plans -0-1-0 Obesity, status post gastric sleeve with weight loss of 70 pounds History of hypertension on lisinopril prior to . AMA: Age 34 normal NIPT 46XX labs drawn 03/18/2025 at [facility] through [facility]: O+/Antibody negative/RPR nonreactive/hepatitis B surface antigen negative/HIV negative/TSH normal/hemoglobin 13.8/drug screen negative/Pap smear normal/gonorrhea negative/chlamydia negative/trichomonas negative/ Notes Visit Date: 09/27/25 Last Updated by: Roselyn Sparks MD Saw DR Garcia on 09/20/2025 / recommend transfer of care to [facility] and delivery at [facility] due to splenic cyst / growth at 84 th percentile US done on 08/09/[address] Jose hung/kar appropriate growth and has another one on 09/20/2025 AMA. Obesity / Adrenal cyst on fetus small l1x0.7 cm left side /h/o Bariatric surgery/ h/o chronic hypertension /start NST at 32 weeks Visit Date: 09/05/25 Last Updated by: Roselyn Sparks MD US done on 08/09/[address] Jose hung/kar appropriate growth and has another one on 09/20/2025 AMA. Obesity / Adrenal cyst on fetus small l1x0.7 cm left side /h/o Bariatric surgery/ h/o chronic hypertension /start NST at 32 weeks she states she is monitoring her BP at home and also her sugars / she was given CBC, RPR and one hour GTT /labs done 08/19/2025 One hour Glucose is 130/ Hb is 11.9/ RPR is NR Visit Date: 07/15/25 Last Updated by: Whitney Ramirez (OB Clinic), MD AFP revi Visit Date: 08/18/25 Last Updated by: Roselyn Sparks MD US done on 08/09/[address] Jose ghosh appropriate growth and has another one on 09/20/2025 AMA. Obesity / Adrenal cyst on fetus small l1x0.7 cm left side /h/o Bariatric surgery/ h/o chronic hypertension /start NST at 32 weeks however patient states she is not feeling movements well x 1 week and would prefer to go to hospital to get checked out/ she states she is monitoring her BP at home and also her sugars / she is given CBC, RPR and one hour GTT / she will go to [facility] now for evaluation of the baby and decreased movements Visit Date: 07/15/25 Last Updated by: Whitney Ramirez (OB Clinic)MD AFP reviewed and normal Office Procedures OBC Clinic LOC & Office Proc's Nursing/Assessment Patient Status: Established Patient OB Clinic Nursing Assessment: Medication Reconciliation, Update PMH in EMR and Vital Signs OB Clinic Coordination of Care: AMA, Complex Care and Chronic Disease 1-5, Consent,records obtained, informed consent, Education Simp Pt/Fam, 1 Ins Authorization, Lab and Imaging orders, Results/Orders obtained and Staff clarify orders Special Needs: Heart tones Established Patient Charge Established Patient Point Assignment: 170 Established Patient Point Charge: EP Level 5 (160-above) Assessment & Plan Diagnosis / Problem List (1) Chronic hypertension during , antepartum: Status: Acute (2) H/O gastric sleeve: Status: Acute (3) AMA (advanced maternal age) primigravida 35+: Status: Acute Qualifiers: Trimester: first trimester Qualified Code(s): O09.511 - Supervision of elderly primigravida, first trimester (4) Morbid obesity due to excess calories: Status: Acute (5) anomaly: Status: Acute Additional Assessment US done on 08/09/[address] Jose ghosh appropriate growth and has another one on 09/20/2025 and it shows a splenic cyst and Dr Garcia recommends patient deliver at [facility] / will refer AMA. Obesity / Adrenal cyst on fetus small l1x0.7 cm left side /h/o Bariatric surgery/ h/o chronic hypertension /start NST at 32 weeks/ ordered today / transfer of care ordered
[2025-09-27 13:59] VITALS: BP 109/77; PULSE 92; RESP 18; TEMP 36.6; O2SAT 96; BMI 36.5
== END 2025-09-27 14:55 | disposition home or self-care (01) ==
LOC: HODSOBC 13:07
PROVIDERS: Supervising Provider Obstetrics & Gynecology; Visit Provider Obstetrics & Gynecology
DX: O09.893 Supervision of other high risk pregnancies, third trimester (principal); O10.913 Unspecified pre-existing hypertension complicating pregnancy, third trimester; O99.843 Bariatric surgery status complicating pregnancy, third trimester; O09.523 Supervision of elderly multigravida, third trimester; O99.213 Obesity complicating pregnancy, third trimester; E66.01 Morbid (severe) obesity due to excess calories; O35.EXX0 Maternal care for other (suspected) fetal abnormality and damage, fetal genitourinary anomalies, not applicable or unspecified; O32.2XX0 Maternal care for transverse and oblique lie, not applicable or unspecified; Z3A.30 30 weeks gestation of pregnancy; Z28.21 Immunization not carried out because of patient refusal
CPT/HCPCS: 99215; G0463